=== PATIENT | female | born 2000 | race Caucasian/White ===

== ENCOUNTER 2019-05-25 16:30 | Emergency (ER) | payer MEDICAID ==
--- NOTE | 2019-05-25 17:50 | CRLCR ---
Indication: Pain in right knee. Technique: Four views of the right knee. Comparison: None Findings: The joint spaces are well maintained. No acute fracture or subluxation is identified. Significant joint effusion is not appreciated. Impression: No acute fracture. Dictated by Jaida Nunez MD @ May 25 2019 5:48PM Signed by Dr. Jaida Nunez @ May 25 2019 5:49PM
--- NOTE | 2019-05-25 17:57 | EDM.PDOC ---
ED HPI GENERAL MEDICAL PROBLEM - General Chief Complaint: Lower Extremity Injury/Pain Stated Complaint: HURT KNEE Time Seen by Provider: 05/25/19 17:52 Source of Information: Reports: Patient History Limitations: Reports: No Limitations - History of Present Illness INITIAL COMMENTS - FREE TEXT/NARRATIVE: pt has a very prominent knee cap and she has been hitting it alot. She is having discomfort in it and she finds it very tender. Onset: Gradual Duration: Day(s): Location: Reports: Lower Extremity, Right Associated Symptoms: Reports: No Other Symptoms - Related Data Allergies Allergy/AdvReac Type Severity Reaction Status Date / Time amoxicillin Allergy Hives Verified 05/25/19 16:52 Home Meds: Home Meds Albuterol [Ventolin HFA] 1 puff INH Q4H PRN 04/08/18 [History] Nicotine Polacrilex [Nicotine Gum] 4 mg PO Q4H PRN 04/08/18 [History] Nicotine [Nicotine Patch] 1 each TD DAILY 04/08/18 [History] traZODone 50 mg PO BEDTIME 04/08/18 [History] Escitalopram Oxalate 1 tab PO BEDTIME 05/25/19 [History] Fluticasone Propion/Salmeterol [Wixela 100-50 Inhub] 1 diskus INH BID 05/25/19 [ History] Past Medical History - Past Health History Medical/Surgical History: Denies Medical/Surgical History Cardiovascular History: Reports: Pulmonary Hypertension Respiratory History: Reports: Asthma 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 She has had a long standing history of knee pain. i Exam Limited By: No Limitations General Appearance: Alert Extremities: Other (knee is painful over the knee cap. The patella is very prominet. A xray was done which shows no acute findings, ) Course - Vital Signs Last Recorded V/S: Last Vital Signs Temp 36.0 C 05/25/19 17:07 Pulse 96 05/25/19 17:07 Resp 16 05/25/19 17:07 BP 145/78 H 05/25/19 17:07 Pulse Ox 94 L 05/25/19 17:07 Departure - Departure Time of Disposition: 17:57 Disposition: Home, Self-Care 01 Condition: Fair Clinical Impression: Acute knee pain - Discharge Information Referrals: PCP,None [Primary Care Provider] - Care Plan Goals: cool pack the knee, motrin 600mg tid, ortho referal in next 2-3 weeks. Sepsis Event Note - Evaluation Sepsis Screening Result: No Definite Risk - Focused Exam Vital Signs: Vital Signs Temp Pulse Resp BP Pulse Ox 05/25/19 17:07 36.0 C 96 16 145/78 H 94 L 05/25/19 16:49 36.0 C 96 16 145/78 H 94 L Date Exam was Performed: 05/25/19 Time Exam was Performed: 17:52
== END 2019-05-25 18:15 | disposition home or self-care (01) ==
LOC: JP.ED 16:30
DX: M25.561 Pain in right knee (principal); F17.210 Nicotine dependence, cigarettes, uncomplicated; J45.909 Unspecified asthma, uncomplicated; F32.9 Major depressive disorder, single episode, unspecified; E05.90 Thyrotoxicosis, unspecified without thyrotoxic crisis or storm; Z88.0 Allergy status to penicillin; Z79.899 Other long term (current) drug therapy
CPT/HCPCS: 73564-RT; 99283-25

== ENCOUNTER 2019-06-22 14:00 | Emergency (ER) | payer MEDICAID ==
--- NOTE | 2019-06-22 14:44 | EDM.PDOC ---
ED HPI GENERAL MEDICAL PROBLEM - General Chief Complaint: Respiratory Problem Stated Complaint: PAINFUL COUGH Time Seen by Provider: 06/22/19 14:30 Source of Information: Reports: Patient History Limitations: Reports: No Limitations - History of Present Illness INITIAL COMMENTS - FREE TEXT/NARRATIVE: 19-year-old female has had a cold for the past week, over the past 2 days the cough is become a little more productive and painful. No significant fevers or chills. She is also had an intermittent runny nose and sore throat, her voice is changing. She continues to smoke. Onset: Gradual Duration: Day(s): (7 days) Associated Symptoms: Reports: Other (Runny nose and sore throat). Denies: Fever /Chills Throat Pain Score (Numeric/FACES): 6 - Related Data Allergies Allergy/AdvReac Type Severity Reaction Status Date / Time amoxicillin Allergy Hives Verified 06/22/19 14:19 Home Meds: Home Meds Albuterol [Ventolin HFA] 2 puff INH Q4H PRN 04/08/18 [History] Fluticasone Propion/Salmeterol [Wixela 100-50 Inhub] 1 diskus INH BID 05/25/19 [ History] Past Medical History - Past Health History Medical/Surgical History: Denies Medical/Surgical History HEENT History: Reports: None Cardiovascular History: Reports: None, Pulmonary Hypertension Respiratory History: Reports: Asthma Gastrointestinal History: Reports: None Genitourinary History: Reports: None 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: 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 History: Reports: Other (See Below) Other 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 History: right knee pain Neurological History: Reports: None Psychiatric History: Reports: Depression Endocrine/Metabolic History: Reports: Hyperthyroidism Hematologic History: Reports: None Immunologic History: Reports: None Oncologic (Cancer) History: Reports: None Dermatologic History: Reports: None - Past Surgical History 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 Surgical History: Reports: None Social & Family History - Tobacco Use Smoking Status *Q: Current Some Day Smoker Years of Tobacco use: 6 Packs/Tins Daily: 0.2 Used Tobacco, but Quit: No Second Hand Smoke Exposure: Yes - Caffeine Use Caffeine Use: Reports: Coffee, Energy Drinks, Soda, Tea - Recreational Drug Use Recreational Drug Use: No ED ROS GENERAL - Review of Systems Review Of Systems: See Below Constitutional: Reports: Malaise HEENT: Reports: Rhinitis, Throat Pain. Denies: Ear Pain Respiratory: Reports: Shortness of Breath, Cough, Sputum Cardiovascular: Reports: Chest Pain (With coughing) GI/Abdominal: Denies: Nausea, Vomiting Skin: Reports: No Symptoms Neurological: Denies: Headache Psychiatric: Reports: No Symptoms ED EXAM, GENERAL - Physical Exam Exam: See Below Exam Limited By: No Limitations General Appearance: Alert, No Apparent Distress, Other ( fairly frequent dry cough) Ears: Normal TMs Nose: Normal Inspection Throat/Mouth: Normal Inspection Respiratory/Chest: No Respiratory Distress, Lungs Clear Neurological: Alert, Oriented Psychiatric: Normal Affect, Normal Mood Course - Vital Signs Last Recorded V/S: Last Vital Signs Temp 97.1 F 06/22/19 14:28 Pulse 98 06/22/19 14:28 Resp 16 06/22/19 14:28 BP 112/64 06/22/19 14:28 Pulse Ox 96 06/22/19 14:28 - Orders/Labs/Meds Orders: Active Orders 24 hr Category Date Time Status CULTURE STREP A CONFIRMATION [] Routine Lab 06/22/19 14:44 Results STREP SCRN A RAPID W CULT CONF [RM] Routine Lab 06/22/19 14:44 Results - Re-Assessments/Exams Free Text/Narrative Re-Assessment/Exam: 06/22/19 14:44 Rapid strep was obtained, influenza antigens and 2 view chest x-ray. 06/22/19 15:19 Rapid strep was negative, influenza antigens negative, 2 view chest x-ray negative. Was explained to the patient that she has a viral URI with cough and will have to wait till it passes on its own. It would help if she would avoid smoking. A work note was supplied for today and tomorrow. Departure - Departure Time of Disposition: 15:35 Disposition: Home, Self-Care 01 Clinical Impression: Viral URI with cough - Discharge Information Instructions: Viral Respiratory Infection, [id number] Referrals: PCP,None [Primary Care Provider] - Forms: ED Department Discharge Care Plan Goals: Rest, fluids, cold medicines as needed for symptoms and increase activity as tolerated. If not improved in 3 days consider rechecking with your primary provider at the clinic. Try to avoid smoking. Sepsis Event Note - Evaluation Sepsis Screening Result: No Definite Risk - Focused Exam Vital Signs: Vital Signs Temp Pulse Resp BP Pulse Ox 06/22/19 14:28 97.1 F 98 16 112/64 96 Date Exam was Performed: 06/22/19 Time Exam was Performed: 16:18 - My Orders Last 24 Hours: My Active Orders 06/22/19 14:44 CULTURE STREP A CONFIRMATION [RM] Routine STREP SCRN A RAPID W CULT CONF [RM] Routine - Assessment/Plan Last 24 Hours: My Active Orders 06/22/19 14:44 CULTURE STREP A CONFIRMATION [RM] Routine STREP SCRN A RAPID W CULT CONF [] Routine
--- NOTE | 2019-06-22 15:21 | CRLCR ---
INDICATION: Dyspnea TECHNIQUE: Chest radiograph 2 views COMPARISON: None FINDINGS: Mediastinum: The mediastinum is normal in appearance. The heart silhouette is normal in size and morphology. Lung: Both lungs are unremarkable in appearance. No sign of pleural effusion seen. No pneumothorax is identified. Bone and Soft tissue: Unremarkable for age. IMPRESSION: 1. No acute cardiopulmonary disease is seen. Dictated by: Naveen Pugh MD @ 06/22/2019 15:20:52 (Electronically Signed)
== END 2019-06-22 15:35 | disposition home or self-care (01) ==
LOC: JP.ED 14:00
DX: J06.9 Acute upper respiratory infection, unspecified (principal); J45.909 Unspecified asthma, uncomplicated; Z88.1 Allergy status to other antibiotic agents
CPT/HCPCS: 71046; 87081; 87804; 87804-59; 87880-QW; 99283-25

== ENCOUNTER 2019-08-05 14:23 | Emergency (ER) | payer MEDICAID ==
--- NOTE | 2019-08-05 15:10 | EDM.PDOC ---
ED HPI GENERAL MEDICAL PROBLEM - General Chief Complaint: Respiratory Problem Stated Complaint: COUGH FOR LAST WEEK NEED A NOTE SAYING SHE CAN RE Time Seen by Provider: 08/05/19 15:10 Source of Information: Reports: Patient History Limitations: Reports: No Limitations - History of Present Illness INITIAL COMMENTS - FREE TEXT/NARRATIVE: pt arrived with a history of a marked cough . She needs a note to return to work. 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 Onset: Gradual Duration: Hour(s): Location: Reports: Chest Associated Symptoms: Reports: Cough Anterior Chest Pain Score (Numeric/FACES): 4 - Related Data Allergies Allergy/AdvReac Type Severity Reaction Status Date / Time amoxicillin Allergy Hives Verified 08/05/19 14:45 Home Meds: Home Meds Albuterol [Ventolin HFA] 2 puff INH Q4H PRN 04/08/18 [History] Fluticasone Propion/Salmeterol [Wixela 100-50 Inhub] 1 diskus INH BID 05/25/19 [ History] Past Medical History - Past Health History Medical/Surgical History: Denies Medical/Surgical History HEENT History: Reports: None Cardiovascular History: Reports: None, Pulmonary Hypertension Respiratory History: Reports: Asthma Gastrointestinal History: Reports: None Genitourinary History: Reports: None 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: 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 History: Reports: Other (See Below) Other 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 History: right knee pain Neurological History: Reports: None Psychiatric History: Reports: Depression Endocrine/Metabolic History: Reports: Hyperthyroidism Hematologic History: Reports: None Immunologic History: Reports: None Oncologic (Cancer) History: Reports: None Dermatologic History: Reports: None - Past Surgical History 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 Surgical History: Reports: None Social & Family History - Tobacco Use Smoking Status *Q: Current Every Day Smoker Years of Tobacco use: 6 Packs/Tins Daily: 0.5 Used Tobacco, but Quit: No Second Hand Smoke Exposure: Yes - Caffeine Use Caffeine Use: Reports: Soda, Tea - Recreational Drug Use Recreational Drug Use: No ED ROS GENERAL - Review of Systems Review Of Systems: See Below Constitutional: Reports: No Symptoms HEENT: Reports: No Symptoms Respiratory: Reports: Cough Cardiovascular: Reports: No Symptoms Endocrine: Reports: No Symptoms GI/Abdominal: Reports: No Symptoms : Reports: No Symptoms 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: Reports: No Symptoms Skin: Reports: No Symptoms ED EXAM, GENERAL - Physical Exam Exam: See Below Free Text/Narrative:: pt arrived with a marked cough. 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 Exam Limited By: No Limitations General Appearance: Alert, Mild Distress Ears: Normal TMs Nose: Normal Inspection Throat/Mouth: Normal Inspection Head: Atraumatic Respiratory/Chest: No Respiratory Distress Course - Vital Signs Last Recorded V/S: Last Vital Signs Temp 35.5 C L 08/05/19 14:51 Pulse 107 H 08/05/19 14:51 Resp 16 08/05/19 14:51 BP 139/76 08/05/19 14:51 Pulse Ox 94 L 08/05/19 14:51 - Orders/Labs/Meds Orders: Active Orders 24 hr Category Date Time Status Isolation [COMM] Routine Oth 08/05/19 15:10 Ordered Labs: Laboratory Tests 08/05/19 Range/Units 15:10 WBC 7.9 (4.5-11.0) K/uL RBC 5.78 H (3.30-5.50) M/uL Hgb 16.2 H (12.0-15.0) g/dL Hct 49.8 H (36.0-48.0) % MCV 86 (80-98) fL MCH 28 (27-31) pg MCHC 33 (32-36) % Plt Count 315 (150-400) K/uL Neut % (Auto) 67 H (36-66) % Lymph % (Auto) 24 (24-44) % [place] % (Auto) 5 (2-6) % Eos % (Auto) 3 (2-4) % Baso % (Auto) 1 (0-1) % - Re-Assessments/Exams Free Text/Narrative Re-Assessment/Exam: 08/05/19 16:25 influ neg, wbc not elevated. Departure - Departure Time of Disposition: 16:17 Disposition: Home, Self-Care 01 Condition: Fair Clinical Impression: Cough, Viral illness - Discharge Information Instructions: Cough, Adult, [id number], Viral Respiratory Infection, Easy-To- Read Referrals: PCP,None [Primary Care Provider] - Forms: ED Department Discharge Care Plan Goals: push fluids, cool mist humidifier, robitussin ac 1-2 tsp q6h prn for cough. no work for the next 3 days. Sepsis Event Note - Evaluation Sepsis Screening Result: No Definite Risk - Focused Exam Vital Signs: Vital Signs Temp Pulse Resp BP Pulse Ox 08/05/19 14:51 35.5 C L 107 H 16 139/76 94 L 08/05/19 14:41 35.5 C L 107 H 13 139/76 94 L Date Exam was Performed: 08/05/19 Time Exam was Performed: 16:21 - My Orders Last 24 Hours: My Active Orders 08/05/19 15:10 Isolation [COMM] Routine - Assessment/Plan Last 24 Hours: My Active Orders 08/05/19 15:10 Isolation [COMM] Routine
== END 2019-08-05 16:27 | disposition home or self-care (01) ==
LOC: JP.ED 14:23
DX: B34.9 Viral infection, unspecified (principal); I27.20 Pulmonary hypertension, unspecified; J45.909 Unspecified asthma, uncomplicated; F17.210 Nicotine dependence, cigarettes, uncomplicated; Z88.1 Allergy status to other antibiotic agents
CPT/HCPCS: 36415; 85025; 87804; 87804-59; 99283

== ENCOUNTER 2019-12-14 20:19 | Emergency (ER) | payer MEDICAID ==
--- NOTE | 2019-12-14 20:36 | EDM.PDOC ---
ED HPI GENERAL MEDICAL PROBLEM - General Chief Complaint: Lower Extremity Injury/Pain Stated Complaint: PAIN IN LEFT FOOT Time Seen by Provider: 12/14/19 20:25 Source of Information: Reports: Patient History Limitations: Reports: No Limitations - History of Present Illness INITIAL COMMENTS - FREE TEXT/NARRATIVE: 19 yo left heel and ankle pain. 3 day hx no injury. the pain initiated in her heal but now is radiating up to mid calf and into foot. very tender to palpation no ecchymosis or erythema mild edema. left outer aspect of ankle Pain Score (Numeric/FACES): 10 - Related Data Allergies Allergy/AdvReac Type Severity Reaction Status Date / Time amoxicillin Allergy Hives Verified 12/14/19 20:39 Home Meds: Home Meds Albuterol [Ventolin HFA] 2 puff INH Q4H PRN 04/08/18 [History] Fluticasone Propion/Salmeterol [Wixela 100-50 Inhub] 1 diskus INH BID 05/25/19 [History] Past Medical History - Past Health History Medical/Surgical History: Denies Medical/Surgical History HEENT History: Reports: None Cardiovascular History: Reports: None, Pulmonary Hypertension Respiratory History: Reports: Asthma Gastrointestinal History: Reports: None Genitourinary History: Reports: None 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: 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 History: Reports: Other (See Below) Other 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 History: right knee pain Neurological History: Reports: None Psychiatric History: Reports: Depression Endocrine/Metabolic History: Reports: Hyperthyroidism Hematologic History: Reports: None Immunologic History: Reports: None Oncologic (Cancer) History: Reports: None Dermatologic History: Reports: None - Past Surgical History 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 Surgical History: Reports: None Social & Family History - Caffeine Use Caffeine Use: Reports: Soda, Tea Review of Systems - Review of Systems Review Of Systems: See Below Constitutional: Denies: Chills, Fever Respiratory: Denies: Shortness of Breath, Wheezing Cardiovascular: Denies: Chest Pain ED EXAM, GENERAL - Physical Exam Exam: See Below Exam Limited By: No Limitations General Appearance: Alert, WD/WN, No Apparent Distress Respiratory/Chest: No Respiratory Distress Extremities: Other (very tender left heel and planter facious, mild edema, no erythema or ecchymosis) Course - Vital Signs Last Recorded V/S: Last Vital Signs Temp 36.4 C 12/14/19 20:42 Pulse 103 H 07/26/20 20:42 Resp 17 12/14/19 20:42 BP 140/79 12/14/19 20:42 Pulse Ox 94 L 12/14/19 20:42 - Orders/Labs/Meds Orders: Active Orders 24 hr Category Date Time Status Ankle Min 3V Lt [CR] Stat Exams 12/14/19 20:54 Taken - Re-Assessments/Exams Free Text/Narrative Re-Assessment/Exam: 12/14/19 22:30 x-ray no acute osteo abnormalities Departure - Departure Time of Disposition: 22:27 Disposition: Home, Self-Care 01 Condition: Good Clinical Impression: Achilles bursitis Qualifiers: Laterality: left Qualified Code(s): M76.62 - Achilles tendinitis, left leg - Discharge Information *PRESCRIPTION DRUG MONITORING PROGRAM REVIEWED*: Not Applicable *COPY OF PRESCRIPTION DRUG MONITORING REPORT IN PATIENT ARIANNE: Not Applicable Instructions: Tendinitis Referrals: PCP,None [Primary Care Provider] - Forms: ED Department Discharge Additional Instructions: weight bearing as tolerated ice as much as possible ibuprofen 400-600 mg every 6 hours may use acetaminophen 1000 mg every 6 hours for break through pain follow-up with orthopedics this week Sepsis Event Note (ED) - Focused Exam Vital Signs: Vital Signs Temp Pulse Resp BP Pulse Ox 12/14/19 20:42 36.4 C 103 H 17 140/79 94 L 12/14/19 20:40 36.4 C 103 H 17 140/79 94 L - My Orders Last 24 Hours: My Active Orders 12/14/19 20:54 Ankle Min 3V Lt [CR] Stat - Assessment/Plan Last 24 Hours: My Active Orders 12/14/19 20:54 Ankle Min 3V Lt [CR] Stat
--- NOTE | 2019-12-15 11:29 | CR ---
Ankle Min 3V Lt CLINICAL HISTORY: Pain FINDINGS: The soft tissues are normal. No acute fracture or dislocation is noted. Ankle mortise is intact. Articular surfaces are smooth. Impression: Negative
== END 2019-12-14 22:58 | disposition home or self-care (01) ==
LOC: JP.ED 20:19
DX: M76.62 Achilles tendinitis, left leg (principal); J45.909 Unspecified asthma, uncomplicated; Z88.1 Allergy status to other antibiotic agents
CPT/HCPCS: 73610-26-LT; 73610-LT; 99283-25

== ENCOUNTER 2019-12-18 13:29 | Emergency (ER) | payer MEDICAID ==
--- NOTE | 2019-12-18 13:57 | EDM.PDOC ---
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 Denies fever, chills, or night sweats. works at [employer] and was tested 3 days ago for COVID. 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 - Related Data Allergies Allergy/AdvReac Type Severity Reaction Status Date / Time amoxicillin Allergy Hives Verified 12/14/19 20:39 Home Meds: Home Meds Albuterol [Ventolin HFA] 2 puff INH Q4H PRN 04/08/18 [History] Fluticasone Propion/Salmeterol [Wixela 100-50 Inhub] 1 diskus INH BID 05/25/19 [History] Past Medical History - Past Health History Medical/Surgical History: Denies Medical/Surgical History HEENT History: Reports: None Other HEENT History: glasses and contacts Cardiovascular History: Reports: None, Pulmonary Hypertension Respiratory History: Reports: Asthma Gastrointestinal History: Reports: None Genitourinary History: Reports: None 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: 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 History: Reports: Other (See Below) Other 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 History: right knee pain Neurological History: Reports: None Psychiatric History: Reports: Depression Endocrine/Metabolic History: Reports: Hyperthyroidism Hematologic History: Reports: None Immunologic History: Reports: None Oncologic (Cancer) History: Reports: None Dermatologic History: Reports: None - Infectious Disease History Infectious Disease History: Reports: Chicken Pox - Past Surgical History 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 Surgical History: Reports: None Social & Family History - Tobacco Use Smoking Status *Q: Current Every Day Smoker Years of Tobacco use: 5 Packs/Tins Daily: 0.3 - Caffeine Use Caffeine Use: Reports: Soda - Recreational Drug Use Recreational Drug Use: Yes Recreational Drug Type: Reports: Methamphetamine ED ROS GENERAL - Review of Systems Review Of Systems: See Below Constitutional: Reports: No Symptoms HEENT: Reports: Rhinitis, Throat Pain Respiratory: Reports: Cough Cardiovascular: Reports: No Symptoms Endocrine: Reports: No Symptoms GI/Abdominal: Reports: No Symptoms : Reports: No Symptoms 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: Reports: No Symptoms Skin: Reports: No Symptoms Neurological: Reports: No Symptoms Psychiatric: Reports: No Symptoms Hematologic/Lymphatic: Reports: No Symptoms Immunologic: Reports: No Symptoms ED EXAM, GENERAL - Physical Exam Exam: See Below Exam Limited By: No Limitations General Appearance: Alert, WD/WN, No Apparent Distress Eye Exam: Bilateral Eye: PERRL Ear Exam: Bilateral Ear: Auricle Normal, Canal Normal, TM normal Nose: Normal Inspection Throat/Mouth: Normal Inspection, Normal Lips, Normal Teeth, Normal Gums, Normal Oropharynx, Normal Voice, No Airway Compromise Head: Normocephalic Neck: Normal Inspection Respiratory/Chest: Lungs Clear, Normal Breath Sounds Cardiovascular: Regular Rate, Rhythm, No Murmur (Female) Exam: Deferred Rectal (Female) Exam: Deferred Neurological: Alert, Oriented, CN II-XII Intact Psychiatric: Normal Affect, Normal Mood Skin Exam: Warm, Dry, Intact Course - Re-Assessments/Exams Free Text/Narrative Re-Assessment/Exam: 12/18/19 13:54 Examine pt. Departure - Departure Time of Disposition: 13:54 Disposition: Home, Self-Care 01 Condition: Good Clinical Impression: Common cold virus - Discharge Information *PRESCRIPTION DRUG MONITORING PROGRAM REVIEWED*: Not Applicable *COPY OF PRESCRIPTION DRUG MONITORING REPORT IN PATIENT ARIANNE: Not Applicable Instructions: Cough, Adult, [id number] Referrals: PCP,None [Primary Care Provider] - Forms: ED Department Discharge Sepsis Event Note (ED) - Evaluation Sepsis Screening Result: No Definite Risk - Problem List & Annotations (1) Common cold virus SNOMED Code(s): 79883073 Code(s): J00 - ACUTE NASOPHARYNGITIS [COMMON COLD] Status: Acute - Problem List Review Problem List Initiated/Reviewed/Updated: Yes - Assessment/Plan Admission H&P: Please use this note as an admission H&P Assessment:: Continue taking DayQuil/Nyquil and OTC analgesics for symptom control. Rest. Drink plenty of fluids. Continue to practice social distancing and wear mask when/where indicated. If the symptoms become worse, please seek medical care immediately. Will give work not to be off work for next few days. <Leif Nevarez - Last Filed: 12/19/19 07:42> Course - Vital Signs Last Recorded V/S: Last Vital Signs Temp 96.9 F 12/18/19 13:43 Pulse 113 H 12/18/19 13:43 Resp 20 12/18/19 13:43 BP 141/94 H 12/18/19 13:43 Pulse Ox 96 12/18/19 13:43 Departure - Departure Time of Disposition: 14:10 Attestation - Student - Attestation Statement Attestation Statement: I personally performed or re-performed the physical examination and medical decision making. I have verified all student documentation or findings, including history, physical exam and/or medical decision making.
== END 2019-12-18 14:11 | disposition home or self-care (01) ==
LOC: JP.ED 13:29
DX: J00 Acute nasopharyngitis [common cold] (principal); J45.909 Unspecified asthma, uncomplicated; F17.210 Nicotine dependence, cigarettes, uncomplicated; Z88.1 Allergy status to other antibiotic agents
CPT/HCPCS: 99282

== ENCOUNTER 2020-03-05 13:09 | Emergency (ER) | payer MEDICAID ==
--- NOTE | 2020-03-05 14:10 | EDM.PDOC ---
<CelinePenny M - Last Filed: 03/05/20 14:03> ED HPI GENERAL MEDICAL PROBLEM - General Chief Complaint: General Stated Complaint: COUGH, BODY ACHES, SORE ALL OVER Time Seen by Provider: 03/05/20 14:03 Source of Information: Reports: Patient, RN, RN Notes Reviewed History Limitations: Reports: No Limitations - History of Present Illness INITIAL COMMENTS - FREE TEXT/NARRATIVE: Pt here with cough, sore throat, and fatigue. Denies pain, n/v, fever, chills, or night sweats. Denies exposure to illness. Works for local [employer] and has missed a few days based on symptoms. - Related Data Allergies Allergy/AdvReac Type Severity Reaction Status Date / Time amoxicillin Allergy Hives Verified 03/05/20 14:03 Home Meds: Home Meds Albuterol [Ventolin HFA] 2 puff INH Q4H PRN 04/08/18 [History] Fluticasone Propion/Salmeterol [Wixela 100-50 Inhub] 1 diskus INH BID 05/25/19 [History] Past Medical History - Past Health History Medical/Surgical History: Denies Medical/Surgical History HEENT History: Reports: None Other HEENT History: glasses and contacts Cardiovascular History: Reports: None, Pulmonary Hypertension Respiratory History: Reports: Asthma Gastrointestinal History: Reports: None Genitourinary History: Reports: None [employer] History: Reports: 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 History: Reports: Other (See Below) Other 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 History: right knee pain Neurological History: Reports: None Psychiatric History: Reports: Depression Endocrine/Metabolic History: Reports: Hyperthyroidism Hematologic History: Reports: None Immunologic History: Reports: None Oncologic (Cancer) History: Reports: None Dermatologic History: Reports: None - Infectious Disease History Infectious Disease History: Reports: Chicken Pox - Past Surgical History 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 Surgical History: Reports: None Social & Family History - Caffeine Use Caffeine Use: Reports: Soda ED ROS GENERAL - Review of Systems Review Of Systems: See Below Constitutional: Reports: Fatigue HEENT: Reports: Rhinitis, Throat Pain Respiratory: Reports: Cough Cardiovascular: Reports: No Symptoms Endocrine: Reports: No Symptoms GI/Abdominal: Reports: No Symptoms : Reports: No Symptoms 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: Reports: No Symptoms Skin: Reports: No Symptoms Neurological: Reports: No Symptoms Psychiatric: Reports: No Symptoms Hematologic/Lymphatic: Reports: No Symptoms Immunologic: Reports: No Symptoms ED EXAM, GENERAL - Physical Exam Exam: See Below Exam Limited By: No Limitations General Appearance: Alert, WD/WN Eye Exam: Bilateral Eye: Normal Inspection, PERRL Ears: Normal External Exam, Normal Canal, Normal TMs Ear Exam: Bilateral Ear: TM normal Throat/Mouth: Other (Reddened ) Head: Normocephalic Neck: Normal Inspection, Supple, Non-Tender, Full Range of Motion Respiratory/Chest: Lungs Clear Cardiovascular: Regular Rate, Rhythm (Female) Exam: Deferred Rectal (Female) Exam: Deferred Neurological: Alert, Oriented Psychiatric: Normal Affect Skin Exam: Warm, Dry Departure - Departure Time of Disposition: 14:07 Disposition: Home, Self-Care 01 Condition: Good Clinical Impression: Bronchitis - Discharge Information *PRESCRIPTION DRUG MONITORING PROGRAM REVIEWED*: Not Applicable *COPY OF PRESCRIPTION DRUG MONITORING REPORT IN PATIENT ARIANNE: Not Applicable Instructions: Upper Respiratory Infection, Adult, [id number] Referrals: PCP,None [Primary Care Provider] - Forms: ED Department Discharge, ED Return to Work/School Form Care Plan Goals: Please be sure to allow for plenty of rest. Drink plenty of fluids and eat a diet that is tolerated. Stay home from work until you receive the results from the COVID test. This may be Sunday or Sunday. Uou may use over the counter preparations for symptom control. If your symptoms worsen, please come back to the ER or see your primary provider. - Problem List & Annotations (1) Bronchitis SNOMED Code(s): 43509599 Code(s): J40 - BRONCHITIS, NOT SPECIFIED ACUTE OR CHRONIC Status: Acute Priority: High - Assessment/Plan Plan: Please be sure to allow for plenty of rest. Drink plenty of fluids and eat a diet that is tolerated. Stay home from work until you receive the results from the COVID test. This may be Sunday or Sunday. Uou may use over the counter preparations for symptom control. If your symptoms worsen, please come back to the ER or see your primary provider. <Leif Nevarez - Last Filed: 03/05/20 17:24> Course - Vital Signs Last Recorded V/S: Last Vital Signs Temp 97.7 F 03/05/20 14:04 Pulse 95 03/05/20 14:04 Resp 18 03/05/20 14:04 BP 133/88 03/05/20 14:04 Pulse Ox 95 03/05/20 14:04 - Orders/Labs/Meds Orders: Active Orders 24 hr Category Date Time Status CORONAVIRUS COVID-19, JIMMY Routine Lab 03/05/20 14:15 Received CULTURE STREP A CONFIRMATION [RM] Stat Lab 03/05/20 14:04 Results STREP SCRN A RAPID W CULT CONF [RM] Stat Lab 03/05/20 14:04 Results - Re-Assessments/Exams Free Text/Narrative Re-Assessment/Exam: 03/05/20 14:27 Agree with above assessment and physical. Rapid strep is negative, COVID was tested and should be available early next week. Advised the patient to rest at home until the COVID test is back. She can return if worsening such as di fficulty breathing. Departure - Departure Time of Disposition: 14:46 Sepsis Event Note (ED) - Focused Exam Vital Signs: Vital Signs Temp Pulse Resp BP Pulse Ox 03/05/20 14:04 97.7 F 95 18 133/88 95 Attestation - Student - Attestation Statement Attestation Statement: I personally performed or re-performed the physical examination and medical decision making. I have verified all student documentation or findings, including history, physical exam and/or medical decision making.
== END 2020-03-05 14:47 | disposition home or self-care (01) ==
LOC: JP.ED 13:09
DX: J40 Bronchitis, not specified as acute or chronic (principal); Z88.1 Allergy status to other antibiotic agents
CPT/HCPCS: 87081; 87880-QW; 99283; U0002

== ENCOUNTER 2021-01-01 17:21 | Emergency (ER) | payer MEDICAID | END 2021-01-01 17:30 | disposition left against medical advice (07) | LOC: JP.ED 17:21 | DX: Z53.21 Procedure and treatment not carried out due to patient leaving prior to being seen by health care provider (principal) ==

== ENCOUNTER 2022-04-08 19:55 | Emergency (ER) | payer OTHER, MEDICAID | END 2022-04-08 23:08 | disposition home or self-care (01) | LOC: JP.ED 19:55 | DX: T76.21XA Adult sexual abuse, suspected, initial encounter (principal); Z88.0 Allergy status to penicillin | CPT/HCPCS: 99284 ==